=== PATIENT | female | born 1940 | race Caucasian/White ===

== ENCOUNTER 2024-03-19 19:17 | Inpatient (IN) | payer MEDICARE ==
[~2024-03-19] VITALS: Ht 154.9 cm; Wt 54.8 kg
[2024-03-19 21:12] LABS: BASOPHILS ABSOLUTE AUTO 0.03 K/mm3 (0.00-0.23); BASOPHILS PERCENT AUTO 0 % (0-2); EOSINOPHILS ABSOLUTE AUTO 0.01 K/mm3 (0.00-0.68); EOSINOPHILS PERCENT AUTO 0 % (0-6); Hematocrit 42.2 % (33.0-51.0); Hemoglobin 13.7 g/dL (11.5-16.0); IMMATURE GRAN ABSOLUTE AUTO 0.03 K/mm3 (0.00-0.10); IMMATURE GRAN PERCENT AUTO 0 % (0-1); LYMPHOCYTES ABSOLUTE AUTO 0.57 K/mm3 (0.84-5.20); LYMPHOCYTES PERCENT AUTO 5 % (21-46); MONOCYTES ABSOLUTE AUTO 0.51 K/mm3 (0.16-1.47); MONOCYTES PERCENT AUTO 5 % (4-13); Mean Corpuscular HGB 29.8 pg (26.0-34.0); Mean Corpuscular HGB Conc 32.5 g/dL (31.5-36.5); Mean Corpuscular Volume 92 fL (80-100); Mean Platelet Volume 9.7 fL (9.1-12.4); NEUTROPHILS ABSOLUTE AUTO 9.34 K/mm3 (1.96-9.15); NEUTROPHILS PERCENT AUTO 89 % (41-73); Platelet Count 342 K/mm3 (150-400); RDW Coefficient Variation 14.1 % (11.7-14.2); RDW Standard Deviation 47.6 fL (35.1-46.3); Red Blood Cell Count 4.59 M/mm3 (3.80-5.20); White Blood Cell Count 10.49 K/mm3 (4.00-11.30)
[2024-03-19 21:34] LABS: Albumin, Blood 3.4 g/dL (3.4-5.0); Bilirubin, Total 0.6 mg/dL (0.1-1.0); Bun/Creatinine Ratio 19.2 (12.0-20.0); Calcium, Blood 9.4 mg/dL (8.5-10.1); Creatinine, Blood 0.73 mg/dL (0.40-1.00); Globulin, Blood 3.3 g/dL (2.2-4.0); Potassium, Blood 3.7 mmol/L (3.5-5.5); Total Protein, Blood 6.7 g/dL (6.4-8.2)
[2024-03-19 21:48] LABS: Source, Urine Clean Catch
[2024-03-19 21:52] LABS: Appearance, Urine Clear (Clear); Bilirubin, Urine Neg (Neg); Blood, Urine Neg (Neg); Color, Urine Yellow (P-Yellow); Glucose Qualitative, Urine Neg (Neg); Ketones, Urine Neg (Neg); Leukocyte Esterase, Urine Neg (Neg); Nitrite, Urine Neg (Neg); Protein, Urine Neg (Neg); Urobilinogen, Urine NORM (Normal)
[2024-03-19] MEDS ORDERED: Polyethylene Glycol 3350 17 gm PO ONE (22:30)
[2024-03-19] MEDS ORDERED: Sennosides 8.6 MG Tab PO ONE (22:30)
[2024-03-19] MEDS ORDERED: CefTRIAXone Sodium 2,000 MG in NS 100 ML IV ONE (23:10)
[2024-03-19] MEDS ORDERED: MetroNIDAZOLE 500MG/NS 100 ml 100 ML IV ONE (23:10)
[2024-03-19] MEDS ORDERED: Morphine Sulfate 4 MG/1 ML Injection IV PRN (23:45)
[2024-03-19] MEDS ORDERED: Acetaminophen 325 MG TABLET PO PRN (23:45)
[2024-03-19] MEDS ORDERED: Ondansetron HCl 2 MG / ML 2ML Vial IV PRN (23:45)
[2024-03-19] MEDS ORDERED: Magnesium Hydroxide Conc 10 ML UDC PO PRN (23:45)
[2024-03-20] MEDS ORDERED: Naloxone HCl 0.4MG / ML 1ML Vial IV PRN (01:05)
[2024-03-20] MEDS ORDERED: FentaNYL Citrate 50 MCG/ML 2 ML Injection IV PRN (01:10)
[2024-03-20] MEDS ORDERED: Piperacillin/Tazobactam Sod 4.5 GM in NS 100 ML IV ONE (01:15)
[2024-03-20 01:16] VITALS: BP 102/67
[2024-03-20] MEDS ORDERED: METO25ER PO (01:46)
[2024-03-20] MEDS ORDERED: Lactated Ringer's 1,000 ML IV SCH (02:00)
--- NOTE | 2024-03-20 02:00 | NUR ---
ARRIVAL TO SURGICAL FLOOR RM 224 FROM ER. PT ARRIVED WITH SIGNIFICANT OTHER "SANNA" AT BEDSIDE AT 0106. PT TRANSFER TO BED VIA SLIDER SHEET. PT ORIENTED TO ROOM AND CALL LIGHT. PT VERBALIZED BEING TIRED AND WANTING TO SLEEP. PT HAD ELEVATED TEMPERATURE ON ARRIVAL. REMOVED MULTIPLE BLANKETS, TO COOL PT. EDUCATION PROVIDED TO PT AND SANNA. PT VERBALIZED WANTING REST AND DID NOT WISH TO COMPLETE HISTORY AT THIS TIME. VERBALIZED ABDOMINAL PAIN A 2 OR 3/10 ON ARRIVAL AND STATED TOLERABLE.
[2024-03-20 03:01] LABS: BASOPHILS ABSOLUTE AUTO 0.02 K/mm3 (0.00-0.23); BASOPHILS PERCENT AUTO 0 % (0-2); EOSINOPHILS PERCENT AUTO 0 % (0-6); Hematocrit 37.7 % (33.0-51.0); Hemoglobin 12.3 g/dL (11.5-16.0); IMMATURE GRAN ABSOLUTE AUTO 0.08 K/mm3 (0.00-0.10); IMMATURE GRAN PERCENT AUTO 1 % (0-1); LYMPHOCYTES ABSOLUTE AUTO 0.52 K/mm3 (0.84-5.20); LYMPHOCYTES PERCENT AUTO 3 % (21-46); MONOCYTES ABSOLUTE AUTO 0.75 K/mm3 (0.16-1.47); MONOCYTES PERCENT AUTO 5 % (4-13); Mean Corpuscular HGB 29.8 pg (26.0-34.0); Mean Corpuscular HGB Conc 32.6 g/dL (31.5-36.5); Mean Corpuscular Volume 91 fL (80-100); Mean Platelet Volume 9.9 fL (9.1-12.4); NEUTROPHILS ABSOLUTE AUTO 14.56 K/mm3 (1.96-9.15); NEUTROPHILS PERCENT AUTO 91 % (41-73); Platelet Count 288 K/mm3 (150-400); RDW Coefficient Variation 14.2 % (11.7-14.2); RDW Standard Deviation 47.3 fL (35.1-46.3); Red Blood Cell Count 4.13 M/mm3 (3.80-5.20); White Blood Cell Count 15.93 K/mm3 (4.00-11.30)
[2024-03-20 03:25] LABS: Magnesium, Blood 1.7 mg/dL (1.6-2.4)
[2024-03-20 03:26] LABS: Albumin, Blood 2.9 g/dL (3.4-5.0); Albumin/Globulin Ratio 0.9 (0.8-1.8); Bilirubin, Total 0.6 mg/dL (0.1-1.0); Bun/Creatinine Ratio 22.5 (12.0-20.0); Calcium, Blood 8.8 mg/dL (8.5-10.1); Creatinine, Blood 0.62 mg/dL (0.40-1.00); Globulin, Blood 3.2 g/dL (2.2-4.0); Potassium, Blood 3.4 mmol/L (3.5-5.5); Total Protein, Blood 6.1 g/dL (6.4-8.2)
[2024-03-20 04:44] VITALS: BP 113/55
[2024-03-20 07:07] VITALS: BP 118/60
--- NOTE | 2024-03-20 07:50 | NUR ---
SHIFT SUMMARY NOC. PT ADMITTED FOR ACUTE DIVERTIC. PT A/O X4 AND AMBULATES TO BSC WITH SBA. PT VOIDING URINE AND IS NPO STATUS. FLUIDS RUNNING PER EMAR. PT REPORTS COVID DX ON 03/09/24 VERIFIED WITH LIVE IN COMPANION AND TELECOM MANAGER THAT ISO NOT NEEDED SINCE OVER 10 DAYS. BEDALARM SET FOR SAFETY PT WAS TIRED AND WEAK UPON ARRIVAL. PT VERBALIZED ABD PAIN, BUT REPORTED TOLERATBLE. PAIN INCREASED AFTER GETTING TO BSC. PT HAD CRITICAL LACTIC WHICH IS DOWN TRENDING FROM INITIAL ER VALUE. PT RESTED WITH EYES CLOSED AND CALL LIGHT IN REACH.
[2024-03-20] MEDS ORDERED: Piperacillin/Tazobactam Sod 3.375 GM in NS 100 ML IV SCH (08:00)
[2024-03-20] MEDS ORDERED: NS 250 ML IV PRN (08:15)
[2024-03-20] MEDS ORDERED: Enoxaparin 40 MG/0.4 ML SYR SC SCH (09:00)
[2024-03-20] MEDS ORDERED: Polyethylene Glycol 3350 17 gm PO SCH (09:00)
[2024-03-20] MEDS ORDERED: Potassium Chloride 40 MEQ in NS 250 ML IV ONE (11:00)
--- NOTE | 2024-03-20 14:41 | NUR ---
PT PAINFUL W/MOVEMENT DECLINED FENTANYL AND TYLENOL. NOW RESTING BACK IN BED AFTER USING BSC.
[2024-03-20 14:44] VITALS: BP 98/85
--- NOTE | 2024-03-20 16:13 | NUR ---
SUMMARY TURNING OVER CARE TO JAY José RN. NO ACUTE CHANGES T/O SHIFT. PT 1 SBA ASSIST TO BSC. PAINFUL W/MOVEMENT; REFUSED PAIN MEDS. IV ABX INFUSING NOW, AFTER COMPLETION OF IV POTASSIUM PER ORDERS. VISITING WITH GUEST. CALL LIGHT IN REACH.
--- NOTE | 2024-03-20 18:31 | NUR ---
SINCE ASSUMING CARE: HAS RESTED & DECLINED NEEDS. IS CURRENTLY TAKING ONLY SIPS OF CLEAR LQs & DENIES NAUSEA.
[2024-03-20 19:29] VITALS: BP 110/55
[2024-03-21] MEDS ORDERED: Lactated Ringer's 1,000 ML IV SCH (02:00)
[2024-03-21 02:25] VITALS: BP 130/58
[2024-03-21 04:07] LABS: BASOPHILS ABSOLUTE AUTO 0.02 K/mm3 (0.00-0.23); BASOPHILS PERCENT AUTO 0 % (0-2); EOSINOPHILS PERCENT AUTO 0 % (0-6); Hematocrit 34.3 % (33.0-51.0); Hemoglobin 11.4 g/dL (11.5-16.0); IMMATURE GRAN ABSOLUTE AUTO 0.12 K/mm3 (0.00-0.10); IMMATURE GRAN PERCENT AUTO 1 % (0-1); LYMPHOCYTES ABSOLUTE AUTO 0.56 K/mm3 (0.84-5.20); LYMPHOCYTES PERCENT AUTO 3 % (21-46); MONOCYTES ABSOLUTE AUTO 0.43 K/mm3 (0.16-1.47); MONOCYTES PERCENT AUTO 3 % (4-13); Mean Corpuscular HGB 30.2 pg (26.0-34.0); Mean Corpuscular HGB Conc 33.2 g/dL (31.5-36.5); Mean Corpuscular Volume 91 fL (80-100); Mean Platelet Volume 10.3 fL (9.1-12.4); NEUTROPHILS ABSOLUTE AUTO 15.59 K/mm3 (1.96-9.15); NEUTROPHILS PERCENT AUTO 93 % (41-73); Platelet Count 245 K/mm3 (150-400); RDW Coefficient Variation 14.6 % (11.7-14.2); RDW Standard Deviation 47.7 fL (35.1-46.3); Red Blood Cell Count 3.78 M/mm3 (3.80-5.20); White Blood Cell Count 16.72 K/mm3 (4.00-11.30)
[2024-03-21 04:21] LABS: Calcium, Blood 8.8 mg/dL (8.5-10.1); Creatinine, Blood 0.7 mg/dL (0.40-1.00); Potassium, Blood 3.7 mmol/L (3.5-5.5)
[2024-03-21 05:49] VITALS: BP 142/68
--- NOTE | 2024-03-21 06:13 | NUR ---
SHIFT SUMMARY AOx4. LAC VIEUX. VSS. FREQUENT GAGGING W/PRODUCTIVE COUGH, SPITS UP THICK PRESTON MUCUS. DENIES N/V. ALAINA CLEARS, VERY MIN PO INTAKE-INFORMED DR ANDRADE & HE ORDERED CONTINUOUS LR. NO BM THIS SHIFT. ABD MOD DISTENDED, TENDER W/PALPATION, ACTIVE BT. REPORTS PAIN 03/13 MEDICATED W/25MCG FENTANYL & PT ABLE TO REST. UP 1 ASSIST TO BSC, REPORTS FEELING WEAK THIS AM & IS SHAKY WHILE STANDING. HAS VOIDED MULTIPLE TIMES, URINE ORANGE W/STRONG ODOR. CALL LIGHT IN REACH, WILL MONITOR.
[2024-03-21 07:23] VITALS: BP 133/70
[2024-03-21] MEDS ORDERED: Magnesium Oxide 400 MG Tab PO SCH (09:00)
[2024-03-21 14:00] VITALS: BP 120/62
--- NOTE | 2024-03-21 18:09 | NUR ---
SHIFT SUMMARY PT WAS DROWSY UNTIL EARLY AFTERNOON, WHICH SPOUSE REPORTS IS NORMAL FOR HER. ABD WAS DISTENED SIGNIFICANTLY BUT SOFTENED AFTER BM. GETS SHAKY w/ ACTIVITY TO BSC AT X's. DECLINED ZOFRAN & PAIN MEDS T/O SHIFT.
[2024-03-21 19:09] VITALS: BP 146/79
[2024-03-22 03:15] VITALS: BP 160/77
--- NOTE | 2024-03-22 04:17 | NUR ---
SHIFT SUMMARY PT ABLE TO SLEEP DURING THE NIGHT. PT WAS A SBA TO THE BSC. PT PASSING GAS AND HAVING SM BOWEL MOVEMENTS. PT TOLERATING CLEAR LIQUIDS, VOIDING WELL. PT HAD BEEN DESATTING WHILE SLEEPING DOWN INTO THE MID 80'S. PT WAS THEN PUT ON 2L NC FOR SUPPORT. PT NOW SATTING ABOVE 92% WHILE SLEEPING. NO OTHER CONCERNS AT THIS TIME, CALL LIGHT WITHIN REACH
[2024-03-22 07:11] VITALS: BP 174/76
[2024-03-22 09:08] LABS: BASOPHILS ABSOLUTE AUTO 0.02 K/mm3 (0.00-0.23); BASOPHILS PERCENT AUTO 0 % (0-2); EOSINOPHILS ABSOLUTE AUTO 0.02 K/mm3 (0.00-0.68); EOSINOPHILS PERCENT AUTO 0 % (0-6); Hematocrit 34.8 % (33.0-51.0); Hemoglobin 11.4 g/dL (11.5-16.0); IMMATURE GRAN ABSOLUTE AUTO 0.12 K/mm3 (0.00-0.10); IMMATURE GRAN PERCENT AUTO 1 % (0-1); LYMPHOCYTES ABSOLUTE AUTO 0.32 K/mm3 (0.84-5.20); LYMPHOCYTES PERCENT AUTO 2 % (21-46); MONOCYTES ABSOLUTE AUTO 0.43 K/mm3 (0.16-1.47); MONOCYTES PERCENT AUTO 3 % (4-13); Mean Corpuscular HGB 29.5 pg (26.0-34.0); Mean Corpuscular HGB Conc 32.8 g/dL (31.5-36.5); Mean Corpuscular Volume 90 fL (80-100); Mean Platelet Volume 10.4 fL (9.1-12.4); NEUTROPHILS PERCENT AUTO 94 % (41-73); Platelet Count 275 K/mm3 (150-400); RDW Coefficient Variation 14.5 % (11.7-14.2); RDW Standard Deviation 47.7 fL (35.1-46.3); Red Blood Cell Count 3.86 M/mm3 (3.80-5.20); White Blood Cell Count 15.41 K/mm3 (4.00-11.30)
[2024-03-22 09:28] LABS: Bun/Creatinine Ratio 20.3 (12.0-20.0); Calcium, Blood 8.8 mg/dL (8.5-10.1); Creatinine, Blood 0.59 mg/dL (0.40-1.00); Potassium, Blood 3.6 mmol/L (3.5-5.5)
[2024-03-22 09:31] LABS: BASOPHILS PERCENT MAN 0 % (0-2); EOSINOPHILS PERCENT MAN 0 % (0-6); LYMPHOCYTES PERCENT MAN 2 % (21-46); MONOCYTES ABSOLUTE MAN 0.46 K/mm3 (0.16-1.47); MONOCYTES PERCENT MAN 3 % (4-13); NEUTROPHILS ABSOLUTE MAN 14.63 K/mm3 (1.96-9.15); SEG NEUTROPHILS PERCENT MAN 95 % (41-73); TOTAL CELLS COUNTED 100
[2024-03-22] MEDS ORDERED: Metoprolol Succinate 25 MG TABCR PO SCH (12:00)
[2024-03-22 13:25] VITALS: BP 132/92
[2024-03-22 14:43] VITALS: BP 132/60
[2024-03-22 19:19] VITALS: BP 156/91
--- NOTE | 2024-03-22 19:44 | NUR ---
SHIFT SUMMARY PT HAD A BETTER DAY THAN YESTERDAY, OBSERVED BY THIS RN & PT REPORTING. WAS ALERT & INTERACTIVE TODAY. UP TO BSC & AMBULATED. PAIN BETTER & MORE INTERESTED IN TAKING IN PO FLUIDS. ABD CONT's TO BE DISTENDED.
--- NOTE | 2024-03-23 04:45 | NUR ---
SHIFT SUMMARY PT ABLE TO SLEEP DURING THE NIGHT. PAIN MANAGED PER EMAR. PT TOLERATING CLEAR LIQUID DIET. PT GIVEN A K-PAD AND IT SEEMS TO HELP. PT HAVING LIQUID BOWEL MOVEMENTS. VOIDING WELL. PT WEARING 2L NC FOR SUPPORT WHILE SLEEPING. VSS. NO OTHER CONCERNS AT THIS TIME, CALL LIGHT WITHIN REACH.
[2024-03-23 05:17] VITALS: BP 155/78
[2024-03-23 05:26] LABS: BASOPHILS ABSOLUTE AUTO 0.03 K/mm3 (0.00-0.23); BASOPHILS PERCENT AUTO 0 % (0-2); EOSINOPHILS ABSOLUTE AUTO 0.08 K/mm3 (0.00-0.68); EOSINOPHILS PERCENT AUTO 1 % (0-6); Hematocrit 33.9 % (33.0-51.0); Hemoglobin 11.2 g/dL (11.5-16.0); IMMATURE GRAN ABSOLUTE AUTO 0.08 K/mm3 (0.00-0.10); IMMATURE GRAN PERCENT AUTO 1 % (0-1); LYMPHOCYTES ABSOLUTE AUTO 0.42 K/mm3 (0.84-5.20); LYMPHOCYTES PERCENT AUTO 4 % (21-46); MONOCYTES ABSOLUTE AUTO 0.66 K/mm3 (0.16-1.47); MONOCYTES PERCENT AUTO 6 % (4-13); Mean Corpuscular HGB 29.9 pg (26.0-34.0); Mean Corpuscular Volume 91 fL (80-100); Mean Platelet Volume 10.2 fL (9.1-12.4); NEUTROPHILS PERCENT AUTO 89 % (41-73); Platelet Count 251 K/mm3 (150-400); RDW Coefficient Variation 14.4 % (11.7-14.2); RDW Standard Deviation 47.8 fL (35.1-46.3); Red Blood Cell Count 3.74 M/mm3 (3.80-5.20); White Blood Cell Count 11.77 K/mm3 (4.00-11.30)
[2024-03-23 05:49] LABS: Bun/Creatinine Ratio 19.8 (12.0-20.0); Calcium, Blood 8.7 mg/dL (8.5-10.1); Creatinine, Blood 0.5 mg/dL (0.40-1.00); Potassium, Blood 3.3 mmol/L (3.5-5.5)
[2024-03-23 07:17] VITALS: BP 166/75
--- NOTE | 2024-03-23 07:28 | NUR ---
IMAGING: PT TO CT AT THIS TIME FOR REPEAT IMAGING. PT 1 ASSIST TO WHEELCHAIR. LINENS CHANGED. WILL MONITOR WHEN RETURNS TO ROOM.
--- NOTE | 2024-03-23 11:20 | NUR ---
IMAGING RESULTS: DR EASTMAN IN ROOM TO ASSESS PATIENT. PATIENT MADE NPO AT THIS TIME CT RESULTS HAVE SHOWED NEW ABSCESS FORMATION. AWAITING SURGEON ROUNDING. FAMILY EDUCATED.
[2024-03-23] MEDS ORDERED: Potassium Chloride 20 MEQ TabCR PO ONE (12:00)
[2024-03-23 14:40] VITALS: BP 127/63
--- NOTE | 2024-03-23 18:54 | NUR ---
PT STABLE THIS SHIFT. PT HAD REPEAT CT OF ABDOMEN WHICH SHOWS NEW ABSCESS. NPO AFTER MIDNIGHT FOR POSSIBLE DRAIN PLACEMENT TOMORROW. PT ALAINA CLEARS AT THIS TIME. PT HAVING FREQUEENT, UNCONTROLLABLE LIQUID STOOLS. STOOL SOFTENERS HELD TODAY. PULL UPS ON. PT I ASSIST TO COMMODE, CHAIR AND TO AMBULATE HALLWAY.IV INFUSING PER ORDERS. NO PAIN REPORTED THIS SHIFT. NO NAUSEA. SHOWER THIS AFTERNOON. LABS TO BE REPEATED IN AM.
[2024-03-23 19:19] VITALS: BP 148/74
--- NOTE | 2024-03-24 04:08 | NUR ---
SHIFT SUMMARY PT ABLE TO SLEEP T/O NIGHT. DENIES ANY PAIN DURING THE SHIFT. SBA TO THE BSC. PT VOIDING AND HAVIGN LIQUID BM'S. PT HAS BEEN NPO TONIGHT FOE POSSIBLE PROCEDURE TODAY. VSS. NO TOEHR CONCERNS AT THIS TIME, CALL LIGHT BAILEY REACH
[2024-03-24 04:20] VITALS: BP 161/69
[2024-03-24 05:03] LABS: BASOPHILS ABSOLUTE AUTO 0.04 K/mm3 (0.00-0.23); BASOPHILS PERCENT AUTO 0 % (0-2); EOSINOPHILS ABSOLUTE AUTO 0.18 K/mm3 (0.00-0.68); EOSINOPHILS PERCENT AUTO 2 % (0-6); Hematocrit 33.2 % (33.0-51.0); Hemoglobin 10.9 g/dL (11.5-16.0); IMMATURE GRAN ABSOLUTE AUTO 0.04 K/mm3 (0.00-0.10); IMMATURE GRAN PERCENT AUTO 0 % (0-1); LYMPHOCYTES ABSOLUTE AUTO 0.59 K/mm3 (0.84-5.20); LYMPHOCYTES PERCENT AUTO 5 % (21-46); MONOCYTES ABSOLUTE AUTO 0.86 K/mm3 (0.16-1.47); MONOCYTES PERCENT AUTO 8 % (4-13); Mean Corpuscular HGB 29.9 pg (26.0-34.0); Mean Corpuscular HGB Conc 32.8 g/dL (31.5-36.5); Mean Corpuscular Volume 91 fL (80-100); Mean Platelet Volume 9.9 fL (9.1-12.4); NEUTROPHILS ABSOLUTE AUTO 9.77 K/mm3 (1.96-9.15); NEUTROPHILS PERCENT AUTO 85 % (41-73); Platelet Count 262 K/mm3 (150-400); RDW Coefficient Variation 14.4 % (11.7-14.2); Red Blood Cell Count 3.64 M/mm3 (3.80-5.20); White Blood Cell Count 11.48 K/mm3 (4.00-11.30)
[2024-03-24 05:29] LABS: Bun/Creatinine Ratio 15.6 (12.0-20.0); Calcium, Blood 8.7 mg/dL (8.5-10.1); Creatinine, Blood 0.51 mg/dL (0.40-1.00); Potassium, Blood 3.1 mmol/L (3.5-5.5)
[2024-03-24 07:19] VITALS: BP 151/78
[2024-03-24 12:02] VITALS: BP 156/73
[2024-03-24] MEDS ORDERED: Potassium Chloride 40 MEQ in NS 250 ML IV STA (12:21)
[2024-03-24] MEDS ORDERED: Piperacillin/Tazobactam Sod 3.375 GM ONE (12:47)
[2024-03-24] MEDS ORDERED: Nystatin 100,000 Unit/ML Susp 5 ML UDC PO SCH (13:00)
[2024-03-24 13:51] LABS: Phosphorus, Blood 2.1 mg/dL (2.5-4.9)
[2024-03-24] MEDS ORDERED: Acyclovir 400 MG Tab PO SCH (14:00)
[2024-03-24] MEDS ORDERED: Thiamine HCl 100 MG in Aa 4.25%/Calcium/Lytes/D5w 1,000 ML IV SCH (14:15)
[2024-03-24] MEDS ORDERED: [UNRECOGNIZED DRUG - OTHER] IV SCH (14:15)
[2024-03-24] MEDS ORDERED: LYTES IV SCH (14:15)
[2024-03-24] MEDS ORDERED: CALCIUM IV SCH (14:15)
[2024-03-24] MEDS ORDERED: MULTIVITAMINS IV SCH (14:15)
[2024-03-24] MEDS ORDERED: D5W IV SCH (14:15)
[2024-03-24] MEDS ORDERED: TPN Consult Notification XX ONE (14:25)
[2024-03-24 14:52] VITALS: BP 132/64
[2024-03-24] MEDS ORDERED: Sodium Phosphate Mono/Dibasic 250 MG Tab PO SCH (16:30)
[2024-03-24 19:39] VITALS: BP 138/68
[2024-03-24] MEDS ORDERED: Lactobacil 2-S.Thermo-Bifido 1 1 Cap PO SCH (21:00)
--- NOTE | 2024-03-25 04:03 | NUR ---
SHIFT SUMMARY PT IS A/O X4, SBA TO [facility]. HAS HAD SEVERAL BMS THIS SHIFT, LIQUID BROWN. PT DENIES PAIN AND NAUSEA, DENIES ABD TENDERNESS TO PALPATION. MOD ABD DISTENTION. IV FLUIDS RUNNING ORDERED. PT REFUSED SCDS DURING SHIFT. IV ABX GIVEN ORDERED. PT USING CALL LIGHT APPROPRIATELY. PLAN FOR REPEAT CT ON WED.
[2024-03-25 04:20] VITALS: BP 161/79
[2024-03-25 06:34] LABS: Alanine Aminotransfer (ALT/SGP 21 U/L (12-78); Albumin/Globulin Ratio 0.6 (0.8-1.8); Alk Phos 120 U/L (50-136); Anion Gap 8 mmol/L (3-11); Aspartate Aminotrans (AST/SGOT 28 U/L (12-37); Bilirubin, Total 0.7 mg/dL (0.1-1.0); Blood Urea Nitrogen 7 mg/dL (8-24); Bun/Creatinine Ratio 15.6 (12.0-20.0); CO2, Blood 27 mmol/L (21-32); Calcium, Blood 8.7 mg/dL (8.5-10.1); Chloride, Blood 110 mmol/L (98-108); Creatinine, Blood 0.45 mg/dL (0.40-1.00); Globulin, Blood 3.3 g/dL (2.2-4.0); Glomerular Filtration Rate 95 (60-); Glucose, Blood 113 mg/dL (70-99); Magnesium, Blood 1.9 mg/dL (1.6-2.4); Phosphorus, Blood 2.4 mg/dL (2.5-4.9); Potassium, Blood 3.3 mmol/L (3.5-5.5); Sodium, Blood 142 mmol/L (136-145); Total Protein, Blood 5.3 g/dL (6.4-8.2); Triglycerides 100 mg/dL (30-160)
[2024-03-25 07:23] VITALS: BP 135/73
[2024-03-25] MEDS ORDERED: Fat Emulsion 20 % IV 250 ML IV SCH (09:00)
[2024-03-25] MEDS ORDERED: Potassium Phos/Sodium Phos 250 MG PACK PO SCH (09:00)
[2024-03-25] MEDS ORDERED: Acyclovir Ointment 15 gm TOP SCH (10:00)
[2024-03-25] MEDS ORDERED: Banana Flakes/Tos 1 EA Powder Pack PO SCH (14:00)
[2024-03-25 15:42] VITALS: BP 135/65
--- NOTE | 2024-03-25 16:18 | NUR ---
SHIFT SUMMARY PT A&OX4/FALSE PASS-AIDS, VSS/RA, ALAINA PO FLD, VOIDING/LIQUID BMS - BSC, AMB SBA FWW IN ROOM AND IN HALLWAY, UP TO CHAIR, DENIES PAIN, IVF/ABX AND MVI/INTRALIPID PER EMAR. WILL REPORT TO ONCOMING ELIAN WISE.
[2024-03-25 19:38] VITALS: BP 153/81
[2024-03-26] MEDS ORDERED: FLUCONAZOLE 100 MG/2.5 ML PO ONE (00:05)
--- NOTE | 2024-03-26 00:05 | NUR ---
PT C/O BURNING TO LABIA AREAS WHEN VOIDING.AREA CHECKED PER THIS RN AND PTS RN.AREAS APPEARS INFLAMMED WITH POSSIBLE YEAST.SONIDO RINSE BOTTLE USED FOR COMFORT.I CALLED HOSPITALIST AND ADVISED OF PT C/O AND APPEARANCE.DIFLUCAN ORDERED X1.
[2024-03-26 03:09] VITALS: BP 153/86
--- NOTE | 2024-03-26 04:23 | NUR ---
SHIFT SUMMARY PT IS A/O X4 AND A SBA TO BSC. HAVING LIQUID BMS AND PASSING GAS. PT MEDICATED FOR PAIN ONCE THIS SHIFT W/ TOLERABLE RESULTS. VAG BURNING RESOLVING, MEDICATED W/ DIFLUCAN PER MD ORDERS. M.V.I. RUNNING AT ORDERED RATE, IV ABX GIVEN PER EMAR. PT TOLERATING FULL LIQUID DIET. VSS. PT USING CALL LIGHT APPROPRIATELY.
[2024-03-26 05:20] LABS: BASOPHILS ABSOLUTE AUTO 0.04 K/mm3 (0.00-0.23); BASOPHILS PERCENT AUTO 0 % (0-2); EOSINOPHILS ABSOLUTE AUTO 0.13 K/mm3 (0.00-0.68); EOSINOPHILS PERCENT AUTO 1 % (0-6); Hematocrit 33.1 % (33.0-51.0); IMMATURE GRAN ABSOLUTE AUTO 0.05 K/mm3 (0.00-0.10); IMMATURE GRAN PERCENT AUTO 1 % (0-1); LYMPHOCYTES ABSOLUTE AUTO 0.67 K/mm3 (0.84-5.20); LYMPHOCYTES PERCENT AUTO 7 % (21-46); MONOCYTES ABSOLUTE AUTO 0.91 K/mm3 (0.16-1.47); MONOCYTES PERCENT AUTO 9 % (4-13); Mean Corpuscular HGB Conc 33.2 g/dL (31.5-36.5); Mean Corpuscular Volume 90 fL (80-100); Mean Platelet Volume 10.4 fL (9.1-12.4); NEUTROPHILS ABSOLUTE AUTO 8.47 K/mm3 (1.96-9.15); NEUTROPHILS PERCENT AUTO 82 % (41-73); Platelet Count 272 K/mm3 (150-400); RDW Coefficient Variation 14.2 % (11.7-14.2); RDW Standard Deviation 46.5 fL (35.1-46.3); Red Blood Cell Count 3.67 M/mm3 (3.80-5.20); White Blood Cell Count 10.27 K/mm3 (4.00-11.30)
[2024-03-26 05:51] LABS: Albumin, Blood 2.1 g/dL (3.4-5.0); Albumin/Globulin Ratio 0.6 (0.8-1.8); Bilirubin, Total 0.5 mg/dL (0.1-1.0); Bun/Creatinine Ratio 20.5 (12.0-20.0); Calcium, Blood 8.8 mg/dL (8.5-10.1); Creatinine, Blood 0.44 mg/dL (0.40-1.00); Globulin, Blood 3.5 g/dL (2.2-4.0); Magnesium, Blood 2.2 mg/dL (1.6-2.4); Phosphorus, Blood 2.8 mg/dL (2.5-4.9); Total Protein, Blood 5.6 g/dL (6.4-8.2)
[2024-03-26 08:24] VITALS: BP 175/74
[2024-03-26] MEDS ORDERED: Potassium Chloride 20 MEQ TabCR PO SCH ×2 (11:13→17:00)
[2024-03-26 11:29] VITALS: BP 150/76
[2024-03-26] MEDS ORDERED: Metoprolol Succinate 25 MG TABCR PO ONE (11:35)
[2024-03-26 15:08] VITALS: BP 136/69
--- NOTE | 2024-03-26 17:09 | NUR ---
SHIFT SUMMARY PT A&OX4/OMAHA-AIDS, VSS/RA, ALAINA PO SOFT BITE SIZED, VOIDING/LIQUID BMS - BSC, AMB SBA IN ROOM AND IN HALLWAY, UP TO CHAIR, DENIES PAIN, IVF/ABX AND MVI/INTRALIPID PER EMAR. WILL REPORT TO ONCOMING ELIAN WISE.
[2024-03-26 19:33] VITALS: BP 158/71
[2024-03-27 03:19] VITALS: BP 161/81
[2024-03-27 03:24] VITALS: BP 140/63
[2024-03-27 04:49] LABS: Bun/Creatinine Ratio 19.2 (12.0-20.0); Calcium, Blood 8.8 mg/dL (8.5-10.1); Creatinine, Blood 0.52 mg/dL (0.40-1.00); Magnesium, Blood 2.2 mg/dL (1.6-2.4); Phosphorus, Blood 2.9 mg/dL (2.5-4.9); Potassium, Blood 3.8 mmol/L (3.5-5.5)
--- NOTE | 2024-03-27 05:16 | NUR ---
SHIFT SUMMARY PT IS A/O X4, TRANSFERING INDEPENDENTLY TO BSC. NO BMS SO FAR THIS SHIFT. VOIDING APPROPRIATELY. PT DENIES BURNING W/ URINATION. NO COMPLAINTS OF PAIN THIS SHIFT. PT REPORTS "FEELING BETTER". VSS. CT SCHEDULED THIS AM. IV NUTRITION AND ABX GIVEN PER EMAR. PT CALLING APPROPRIATELY.
[2024-03-27 07:30] VITALS: BP 152/99
[2024-03-27] MEDS ORDERED: [UNRECOGNIZED DRUG - OTHER] IV SCH (08:25)
[2024-03-27] MEDS ORDERED: Aa 4.25%/Calcium/Lytes/D5w 1,000 ML IV SCH (08:25)
[2024-03-27] MEDS ORDERED: CALCIUM IV SCH (08:25)
[2024-03-27] MEDS ORDERED: LYTES IV SCH (08:25)
[2024-03-27] MEDS ORDERED: D5W IV SCH (08:25)
[2024-03-27] MEDS ORDERED: Metoprolol Succinate 25 MG TABCR PO SCH (09:00)
[2024-03-27 14:19] VITALS: BP 155/66
[2024-03-27 19:59] VITALS: BP 163/74
[2024-03-28 04:21] VITALS: BP 168/83
[2024-03-28 05:44] LABS: Bun/Creatinine Ratio 23.2 (12.0-20.0); Calcium, Blood 8.7 mg/dL (8.5-10.1); Creatinine, Blood 0.47 mg/dL (0.40-1.00); Potassium, Blood 3.9 mmol/L (3.5-5.5)
--- NOTE | 2024-03-28 06:02 | NUR ---
SHIFT SUMMARY PT IS A/O X4, IND TO BSC. PT REPORTS DECREASE IN ABD DISCOMFORT, ABDOMEN STILL MODERATELY DISTENTED. PT HAVING SOFT FORMED BOWEL MOVEMENTS. MEDICATED FOR FOR ORAL THRUSH/SORES PER EMAR. IV ABX AND CLINIMIX GIVEN PER EMAR. PT STABLE. CALL LIGHT IN REACH.
[2024-03-28 07:16] VITALS: BP 184/79
[2024-03-28 14:36] VITALS: BP 174/70
[2024-03-28 14:37] VITALS: BP 163/76
--- NOTE | 2024-03-28 16:25 | NUR ---
SHIFT SUMMARY PT AA0X4. AMBULATING WELL DURING SHIFT. ENCOURAGED HER TO KEEP AMBULATING IN ROOM AND DEEP BREATHING. PT SHOWERED TODAY. REPORTS PAIN MUCH IMPROVED, PASSING FLATUS. CLINIMIX INFUSING PER EMAR. PAIN TO LEFT FOREARM IMPROVING IV INFILTRATED THIS MORNING. SPOKE WITH DR. RENTERIA, PLAN IS TO MAKE PT NPO AT MIDNIGHT. AT BEDSIDE T/O SHIFT.
[2024-03-28 19:12] VITALS: BP 138/68
--- NOTE | 2024-03-28 21:00 | NUR ---
ASSUMPTION OF CARE Pt sitting in recliner in room, spouse at bedside. Pt oriented x4, up independently in room. Tolerating PO intake, declines pain medications. Pt verbalizes understanding of plan for NPO at midnight.
[2024-03-29] VITALS (19 sets, daily range): BP systolic 112–172; BP diastolic 54–88
[2024-03-29 06:14] LABS: BASOPHILS ABSOLUTE AUTO 0.04 K/mm3 (0.00-0.23); BASOPHILS PERCENT AUTO 0 % (0-2); EOSINOPHILS ABSOLUTE AUTO 0.09 K/mm3 (0.00-0.68); EOSINOPHILS PERCENT AUTO 1 % (0-6); Hematocrit 35.3 % (33.0-51.0); Hemoglobin 11.6 g/dL (11.5-16.0); IMMATURE GRAN PERCENT AUTO 1 % (0-1); LYMPHOCYTES ABSOLUTE AUTO 0.82 K/mm3 (0.84-5.20); LYMPHOCYTES PERCENT AUTO 6 % (21-46); MONOCYTES ABSOLUTE AUTO 1.08 K/mm3 (0.16-1.47); MONOCYTES PERCENT AUTO 8 % (4-13); Mean Corpuscular HGB 29.5 pg (26.0-34.0); Mean Corpuscular HGB Conc 32.9 g/dL (31.5-36.5); Mean Corpuscular Volume 90 fL (80-100); Mean Platelet Volume 9.9 fL (9.1-12.4); NEUTROPHILS PERCENT AUTO 84 % (41-73); Platelet Count 349 K/mm3 (150-400); RDW Coefficient Variation 14.4 % (11.7-14.2); Red Blood Cell Count 3.93 M/mm3 (3.80-5.20); White Blood Cell Count 13.63 K/mm3 (4.00-11.30)
--- NOTE | 2024-03-29 06:27 | NUR ---
SHIFT SUMMARY No acute events overnight, pt slept throughout shift, vitals remain stable and pt able to reposition self and ambulate in room. Clinimix infusing per PIV. Pt denies issues, has remained NPO since midnight.
[2024-03-29 06:39] LABS: Albumin, Blood 2.4 g/dL (3.4-5.0); Anion Gap 8 mmol/L (3-11); Blood Urea Nitrogen 12 mg/dL (8-24); Bun/Creatinine Ratio 19.8 (12.0-20.0); CO2, Blood 26 mmol/L (21-32); Calcium, Blood 8.7 mg/dL (8.5-10.1); Chloride, Blood 106 mmol/L (98-108); Creatinine, Blood 0.61 mg/dL (0.40-1.00); Glomerular Filtration Rate 89 (60-); Glucose, Blood 106 mg/dL (70-99); Magnesium, Blood 2.4 mg/dL (1.6-2.4); Potassium, Blood 3.9 mmol/L (3.5-5.5); Sodium, Blood 136 mmol/L (136-145)
[2024-03-29] MEDS ORDERED: Cholecalciferol 1000 Unit Tablet (=25MCG) PO SCH (09:00)
--- NOTE | 2024-03-29 11:50 | NUR ---
PT OUT FOR PROCEDURE- PT LEFT THE ROOM IN THE BED FOR DAY SURGERY. 1200 PIP/TAZO PROVIDED TO THE DAY SURG RNS FOR PT TO RECIEVE IN DAY SURGERY. DR RENTERIA AWARE AND REQUESTED DOSE SENT WITH PT.
[2024-03-29] MEDS ORDERED: propofoL 0 ML IV ONE (12:03)
--- NOTE | 2024-03-29 12:03 | NUR ---
PT TO DAY SURGERY WITH 20G IV TO RIGHT FA.
[2024-03-29] MEDS ORDERED: Rocuronium Bromide 10 MG/ML 5ML Injection IV ONE ×3 (12:04→16:46)
[2024-03-29] MEDS ORDERED: FentaNYL Citrate 50 MCG/ML 2 ML Injection ONE (12:04)
[2024-03-29] MEDS ORDERED: propofoL 20 ML IV ONE (14:37)
[2024-03-29] MEDS ORDERED: FentaNYL Citrate 50 MCG/ML 5 ML Injection ONE (14:37)
[2024-03-29] MEDS ORDERED: Bupivacaine 0.5% HCl 5 MG/ML 30MLVIAL ONE ×2 (15:32→15:39)
[2024-03-29] MEDS ORDERED: SuccINYLCHOLINE Chloride 100 MG/5 ML 5MLSYR ONE (16:12)
[2024-03-29] MEDS ORDERED: Phenylephrine HCl 100 MCG/ML-NS 10MLSYR (1MG/10ML) ONE (16:15)
[2024-03-29] MEDS ORDERED: Glycopyrrolate 0.2 MG/ML 5ML VIAL ONE (16:21)
[2024-03-29] MEDS ORDERED: FentaNYL Citrate 50 MCG/ML 2 ML Injection IV PRN ×2 (16:25→16:30)
[2024-03-29] MEDS ORDERED: Dexamethasone Sod Phos 10 MG/ML 1ML VIAL ONE (16:27)
[2024-03-29] MEDS ORDERED: Ondansetron HCl 2 MG / ML 2ML Vial ONE (16:27)
[2024-03-29] MEDS ORDERED: Ondansetron HCl 2 MG / ML 2ML Vial IV PRN (16:30)
[2024-03-29] MEDS ORDERED: HYDROmorphone HCl/Pf 1MG SYR IV PRN (16:30)
[2024-03-29] MEDS ORDERED: Sugammadex Sodium 200 MG/2ML SDV (100 MG/ML) ONE (17:04)
--- NOTE | 2024-03-29 18:03 | NUR ---
SHIFT SUMMARY- PT ALERT AND ORIENTED x3 INDEPENDENT IN THE ROOM PRIOR TO SURGERY. POST OP THE PT HAS 3 EXOFEN SITES. KAYLI DRAIN TO THE LUQ. SHE HAD A DICKINSON TAT WAS DC'D POST OP. PLACED ON 2L VIA NC IN RECOVERY. PT RETURNING TO THE ROOM NOW AT 1810.
--- NOTE | 2024-03-29 18:27 | NUR ---
POST OP PT- APPEARS TO BE RESTING COMFORTABLY AT THIS TIME. PT WAS PLACED ON RA WHEN SHE ARRIVED HOWEVER HER SATS DIPPED TO 88% AND SHE WAS PLACED BACK ON 2L VIA NC. PT STILL APPEARS TO BE SOUND ASLEEP.
[2024-03-30 00:05] VITALS: BP 132/62
[2024-03-30 02:18] VITALS: BP 125/67
--- NOTE | 2024-03-30 05:00 | NUR ---
SHIFT SUMMARY POD 1 LAP DRAINAGE OF PELVIC ABSCESS. NO ACUTE CHANGES OVERNIGHT. VSS. TOLERATING MIN ORALS, CLINIMIX/LIPIDS INFUSING PER EMAR. PT ON 2L O2 VIA NC PRN TO MAINTAIN SAT >90%. FLUIDS/ABX INFUSING PER EMAR. PT REPORTS PAIN TOLERABLE c K-PAD. VOIDING, NO BM. AMBULATES c 1 PERSON ASSIST TO BSC. CALL LIGHT IN REACH, BED IN LOWEST POSITION, WILL REPORT TO DAY RN.
[2024-03-30 07:45] VITALS: BP 118/59
[2024-03-30 15:20] VITALS: BP 146/65
--- NOTE | 2024-03-30 16:53 | NUR ---
SHIFT SUMMARY NO ACUTE CHANGES. LAP SITES TO ABD REMAIN CDI. KAYLI DRAIN TO LUQ WITH SS DRAINAGE. KPAD TO ABD FOR COMFORT. TYLENOL FOR PAIN MANAGEMENT. SLOWLY ALAINA SOFT DIET. CLINIMIX + LIPIDS + ABX PER ORDERS. PT SBA TO BSC AND WITH AMBULATION USING FWW. VSS. AT BEDSIDE FOR SUPPORT. USES CALL LIGHT APPROPRIATELY.
[2024-03-30 19:29] VITALS: BP 151/58
[2024-03-31 02:06] VITALS: BP 165/78
[2024-03-31 02:18] VITALS: BP 154/84
--- NOTE | 2024-03-31 04:09 | NUR ---
SHIFT SUMMARY POD 2 LAP DRAINAGE OF PELVIC ABSCESS. NO ACUTE CHANGES OVERNIGHT. VSS. TOLERATING ORALS, CLINIMIX/LIPIDS/ABX INFUSING PER EMAR. PT REPORTS PAIN TOLERABLE. VOIDING/AMBULATING c FFW & MIN ASSIST R/T LINE/CORD MANAGEMENT. LAP SITES x3 C/D/I. LUQ KAYLI DRAIN c SS DRAINAGE AT INCISION SITE, OTHERWISE D/I; SEROSANG FLUID IN DRAIN. CALL LIGHT IN REACH, BED IN LOWEST POSITION, WILL REPORT TO DAY RN.
[2024-03-31 05:14] LABS: Hemoglobin 10.2 g/dL (11.5-16.0); Mean Corpuscular HGB 29.1 pg (26.0-34.0); Mean Corpuscular HGB Conc 31.9 g/dL (31.5-36.5); Mean Corpuscular Volume 91 fL (80-100); Mean Platelet Volume 10.3 fL (9.1-12.4); Platelet Count 375 K/mm3 (150-400); RDW Coefficient Variation 14.7 % (11.7-14.2); White Blood Cell Count 7.86 K/mm3 (4.00-11.30)
[2024-03-31 06:06] LABS: Albumin, Blood 2.2 g/dL (3.4-5.0); Albumin/Globulin Ratio 0.6 (0.8-1.8); Bilirubin, Total 0.3 mg/dL (0.1-1.0); Bun/Creatinine Ratio 36.2 (12.0-20.0); Calcium, Blood 8.7 mg/dL (8.5-10.1); Creatinine, Blood 0.64 mg/dL (0.40-1.00); Globulin, Blood 3.6 g/dL (2.2-4.0); Magnesium, Blood 2.5 mg/dL (1.6-2.4); Phosphorus, Blood 3.1 mg/dL (2.5-4.9); Potassium, Blood 3.7 mmol/L (3.5-5.5); Total Protein, Blood 5.8 g/dL (6.4-8.2)
[2024-03-31 08:49] VITALS: BP 138/66
[2024-03-31 15:12] VITALS: BP 145/73
--- NOTE | 2024-03-31 17:44 | NUR ---
SHIFT SUMMARY NO ACUTE CHANGES. LAP SITES TO ABD REMAIN CDI. KAYLI DRAIN TO LUQ WITH MINIMAL SS DRAINAGE. KPAD TO ABD FOR COMFORT. TYLENOL FOR PAIN MANAGEMENT. SLOWLY ALAINA SOFT DIET. CLINIMIX + LIPIDS + ABX PER ORDERS. PT SBA TO BSC AND WITH AMBULATION USING FWW IN HALLWAY. VSS. AT BEDSIDE FOR SUPPORT. USES CALL LIGHT APPROPRIATELY.
[2024-03-31 19:45] VITALS: BP 157/70
[2024-04-01 02:29] VITALS: BP 180/82
[2024-04-01 04:12] VITALS: BP 181/76
--- NOTE | 2024-04-01 04:17 | NUR ---
SHIFT SUMMARY POD 3 LAP PELVIC ABCESS DRAINAGE PT ABLE TO SLEEP DURING THE NIGHT. DENIES ANY PAIN DURING THE SHIFT. PT IND TO THE BSC AND AMB IN THE BARRERA. X3 LAP SITES CLOSED WITH WG. KAYLI DRAIN IN LUQ DRAINING SS FLUID. PT PASSING SOME GAS NO BM TONIGHT. TOLERATING DIET. VOIDING WELL. NO OTHER CONCERNS AT THIS TIME, CALL LIGHT WITHIN REACH
[2024-04-01 05:15] LABS: Anion Gap 8 mmol/L (3-11); Blood Urea Nitrogen 19 mg/dL (8-24); Bun/Creatinine Ratio 32.3 (12.0-20.0); CO2, Blood 28 mmol/L (21-32); Calcium, Blood 8.8 mg/dL (8.5-10.1); Chloride, Blood 108 mmol/L (98-108); Creatinine, Blood 0.59 mg/dL (0.40-1.00); Glomerular Filtration Rate 89 (60-); Glucose, Blood 106 mg/dL (70-99); Magnesium, Blood 2.3 mg/dL (1.6-2.4); Phosphorus, Blood 3.3 mg/dL (2.5-4.9); Potassium, Blood 3.8 mmol/L (3.5-5.5); Sodium, Blood 140 mmol/L (136-145); Triglycerides 87 mg/dL (30-160)
[2024-04-01 07:34] VITALS: BP 154/86
[2024-04-01] MEDS ORDERED: Amoxicillin/Clavulanate K 875 MG Tab PO SCH (09:00)
[2024-04-01 15:01] VITALS: BP 147/80
--- NOTE | 2024-04-01 17:26 | NUR ---
SHIFT SUMMARY PATIENT WITH 1 VOMITING EPISODE OF 450ML THIS AM WHILE ON COMMODE HAVING BOWEL MOVEMENT. SHE DENIED ANY NAUSEA AT THAT TIME OR THEREAFTER. NO ADDITIONAL VOMITING EPISODES. PATIENT DRANK LITTLE ENSURE FOR LUNCH BUT BACK UP EATING DINNER AND TOLERATING AT THIS TIME. SHE IS AOX4 AND COOPERATIVE WITH CARE. WILL CONTINUE TO MONITOR.
[2024-04-01 20:30] VITALS: BP 157/84
--- NOTE | 2024-04-01 21:56 | NUR ---
ASSUMPTION OF CARE: PATIENT IS ALERT AND ORIENTED X 4. ABD SITES C/D/I, MINIMAL SS DRAINAGE IN KAYLI DRAIN, IV INFILTRATED IN THE RFA. DENIES CHEST PAIN PRESSURE OR SOB. PATIENT WITH SOME MINOR DIFFICULTIES SWALLOWING AUGMENTIN. SWALLOW TECHNIQUES OF CHIN TUCK AND TAKEN WITH PUDDING, EDUCATED BOTH PATIENT AND SIGNIFICANT OTHER ABOUT POTENTIAL NEED FOR SPEECH THERAPY CONSULT. PATIENT AGREEABLE. SLIGHTLY HYPERTENSIVE, HOWEVER, PATIENT HAD JUST AMBULATED FROM [facility], HAS BEEN 1 ASSIST FROM FAMILY TO [facility] WITH WALKER. PATIENT HAS BEEN COOPERATIVE AND PLEASANT. EDUCATED ON ORAL CARE. NO OTHER CONCERNS THAT ARE NOT LISTED ABOVE.
[2024-04-02 03:30] VITALS: BP 159/70
[2024-04-02 04:41] LABS: Bun/Creatinine Ratio 35.6 (12.0-20.0); Calcium, Blood 9.1 mg/dL (8.5-10.1); Creatinine, Blood 0.51 mg/dL (0.40-1.00); Magnesium, Blood 2.5 mg/dL (1.6-2.4); Phosphorus, Blood 3.6 mg/dL (2.5-4.9)
--- NOTE | 2024-04-02 06:18 | NUR ---
REPORT GIVEN TO JANUARY RNMARC EN ROUTE TO ROOM 327. CALL PLACED TO MARC EDUCATED. NO CONCERNS FROM THIS RN OR RECIEVING RN AT THIS TIME.
[2024-04-02 06:25] VITALS: BP 183/86
[2024-04-02 07:28] VITALS: BP 157/89
[2024-04-02 15:27] VITALS: BP 153/97
[2024-04-02 15:30] VITALS: BP 153/97
--- NOTE | 2024-04-02 17:57 | NUR ---
SUMMARY- PT AAOX4. SBA TO BSC. APPETITE IS MINIMAL. MINIMAL COMPLAINTS OF ABD TENDERNESS. PT WENT FOR A WALK AROUND THE UNIT THIS EVENING. SBA ONLY.
[2024-04-02 19:46] VITALS: BP 145/69
[2024-04-02] MEDS ORDERED: Cetirizine HCl10 MG PO (22:53)
[2024-04-02] MEDS ORDERED: ACETAMINOPHEN500 M2 PO (23:00)
[2024-04-02] MEDS ORDERED: ALBU90OI INH (23:05)
[2024-04-03 04:25] VITALS: BP 144/81
[2024-04-03 06:09] LABS: Bun/Creatinine Ratio 34.6 (12.0-20.0); Calcium, Blood 9.2 mg/dL (8.5-10.1); Creatinine, Blood 0.58 mg/dL (0.40-1.00); Magnesium, Blood 2.1 mg/dL (1.6-2.4)
--- NOTE | 2024-04-03 06:50 | NUR ---
Patient has slept well this shift, VSS. NO REPORTS OF PAIN. Ambulated in the see with her before bed. Clinimax infusing per MD order.
[2024-04-03 07:04] VITALS: BP 135/77
--- NOTE | 2024-04-03 15:26 | NUR ---
PER DR. RENTERIA, SHE NEEDS RECORDS SENT TO PCP IN [place] PRIOR TO DISCHARGE. WILL TALK TO HOSPITALIST RE: CHANGING ABx D/T PT C/O N/V.
[2024-04-03 15:28] VITALS: BP 135/72
--- NOTE | 2024-04-03 18:38 | NUR ---
SHIFT SUMMARY PATIENT A/OX4, BUT FORGETFUL. ABLE TO MAKE NEEDS KNOWN. AMBULATES INDEPENDENTLY IN ROOM AND WALKED THE HALLS TWICE THIS SHIFT WITH . LAPROSCOPIC SURGICAL SITES TO ABDOMEN WNL, NO DRAINAGE OR S/S OF INFECTION NOTED. KAYLI DRAIN DRAINING PROPERLY, NO CONCERNS AT THIS TIME. PATIENT WITH NAUSEA WITH EMESIS AND BELCHING AFTER LUNCH TODAY, ZOFRAN ADMINISTERED AND EFFECTIVE. IV CINIMIX INFUSING PER MAR. NO OTHER CONCERNS AT THIS TIME.
[2024-04-03 19:58] VITALS: BP 125/58
[2024-04-03] MEDS ORDERED: MetroNIDAZOLE 500 MG Tab PO SCH (21:00)
[2024-04-03] MEDS ORDERED: Ciprofloxacin 500 MG Tab PO SCH (21:00)
--- NOTE | 2024-04-03 21:17 | NUR ---
AGGITATION: PATIENT WAS CAMBATIVE WITH STAFF. TRING TO PUSH PASSED TRAUMA PROGRAM MANAGER, "I AM LEAVIN". HE VOIDED ON THE FLOOR AND REFUSED TO GET BACK IN BED. DAUGHTER WAS CALLED TO THE ROOM WITH NO EFFECT. PATIENT IS DISORIENTED TO ALL ORIENTATION QUESTIONS. DR LANDA IS CALLED AND ORDERS FOR ZYPREXA 5 mg IM X1 AND MORPHINE IV 2-4MG Q 6 HOURS PRN FOR PAIN. BP IS ELEVATED AT THIS TIME AND MD IS MADE AWARE. ZYPREXA AND MORPHINE 2MG IS GIVEN, WILL ATTEMPTED THE PO BP MEDS LATER. DAUGHTER IS IN THE ROOM. THE BED ALARM IS ON AND A SITTER HAS PATIENT UNDER CONTINUOS OBSERVATION.
[2024-04-04 05:26] LABS: Hematocrit 34.8 % (33.0-51.0); Hemoglobin 11.2 g/dL (11.5-16.0); Mean Corpuscular HGB 29.6 pg (26.0-34.0); Mean Corpuscular HGB Conc 32.2 g/dL (31.5-36.5); Mean Corpuscular Volume 92 fL (80-100); Mean Platelet Volume 10.2 fL (9.1-12.4); Platelet Count 455 K/mm3 (150-400); RDW Coefficient Variation 15.3 % (11.7-14.2); Red Blood Cell Count 3.78 M/mm3 (3.80-5.20)
[2024-04-04 05:47] LABS: Calcium, Blood 9.2 mg/dL (8.5-10.1); Creatinine, Blood 0.6 mg/dL (0.40-1.00); Potassium, Blood 4.2 mmol/L (3.5-5.5)
--- NOTE | 2024-04-04 06:35 | NUR ---
PATIENT HAS HAD NO NAUSEA AND WAS ABLE TO EAT HALF OF AN UZBEK ICE FOR SNACK. CLINIMIX IS INFUSING PER MAR. PATIENT IS UP TO THE BSC WITH A SBA AND AMBULATING IN THE BARRERA BEFOR GOING TO SLEEP.
--- NOTE | 2024-04-04 07:57 | NUR ---
PATEINT TAKEN TO CT SCAN VIA WHEELCHAIR. DETACHED FROM IV CINIMIX.
[2024-04-04 08:23] VITALS: BP 125/67
[2024-04-04 15:13] VITALS: BP 127/67
--- NOTE | 2024-04-04 18:41 | NUR ---
SHIFT SUMMARY PATIENT A/OX4 BUT FORGETFUL. ABLE TO MAKE NEEDS KNOWN. INDEPENDENT IN ROOM. CLINIMIX AND LIPIDS RUNNING PER DEC. PATIENT DENIES PAIN, BUT COMPLAINING OF NAUSEA TODAY, ZOFRAN ADMINISTERED X2. NO EMESIS. SURGICAL SITES TO ABDOMEN WNL, NO DRAINING OR S/S OF INFECTION NOTED. KAYLI DRAIN DRAINING PROPERLY, SEROSANGUINOUS FLUID NOTED. CT SCAN WAS COMPLETED TODAY. NO OTHER CONCERNS AT THIS TIME.
[2024-04-04 19:27] VITALS: BP 134/67
--- NOTE | 2024-04-05 04:22 | NUR ---
SHIFT SUMMARY PT.IS A&O X4, ABLE TO MAKE HER NEEDS KNOWN./OR BOYFRIEND AND PT.'S SISTER BY THE BEDSIDE. PT.C/O RLQ 3/10WORST, NOTED HARD/SMALL/BROWN STOOL, C/O CONSTIPATION. HYPERACTIVE BT'S IN ALL QUADRANTS. PRN MOM PO AND TYLENOL ADMINISTERED ORDERED (SEE EMAR.) THIS [employer]OLF [employer]UB WEIGHER ENCOURAGED PT.TO AMBULATE TOLERATED AROUND THE UNIT, PT.REPORTS FEELING BETTER AFTER. CLINIMIX INFUSING ORDERED. PT.AND MULTIPLE C/O NUTRITION AND MEALS OFFERED DURING THE HOSPITAL STAY.THIS [employer]OLF [employer] WEIGHER INFORMED THAT OK TO PREPARE APPROPRIATE MEALS PER DIET RECOMMENDATION, AND BRING IT FOR THE PT. BED AT THE LOWEST POSITION, CALL LIGHT IN REACH. WILL HANDOFF TO INCOMING SHIFT NURSE.
[2024-04-05 06:26] LABS: Bun/Creatinine Ratio 33.3 (12.0-20.0); Calcium, Blood 9.4 mg/dL (8.5-10.1); Creatinine, Blood 0.72 mg/dL (0.40-1.00); Magnesium, Blood 2.8 mg/dL (1.6-2.4); Phosphorus, Blood 3.5 mg/dL (2.5-4.9); Potassium, Blood 4.2 mmol/L (3.5-5.5)
[2024-04-05 07:27] VITALS: BP 138/71
--- NOTE | 2024-04-05 11:45 | NUR ---
MEDICAL STUDENT ANAYA SUCCESSFULLY REMOVED KAYLI DRAIN PER DR RENTERIA AT AROUND 1135. PT TOLERATED PROCEDURE WITH SOME DISCOMFORT. NO ADVERSE EFFECTS NOTED AT THIS TIME. PT MEDICATED FOR PAIN PER EMAR.
[2024-04-05] MEDS ORDERED: BANATROL PLUS1 EAC1 PO (12:09)
[2024-04-05] MEDS ORDERED: METR500 PO (12:10)
[2024-04-05] MEDS ORDERED: CIPR500 PO (12:10)
--- NOTE | 2024-04-05 13:46 | NUR ---
DISCHARGE NOTE PT DISCHARGED HOME AT 1340. PT AND PT'S PROVIDED W/ VERBAL AND WRITTEN INSTRUCTIONS AND REPORTED UNDERSTANDING. PT A&OX4, VSS, AMB W/ SBA, TOLERATING PO, VOIDING, AND PAIN MANAGED. BELONGINGS WERE RETURNED AND PT ESCOURTED OUT BY S/O.
== END 2024-04-05 13:43 | disposition home or self-care (01) | DRG 853 ==
LOC: ER 19:17 → SURS 19:18 → MEDS 03-20 13:20 → SURS 03-20 13:20 → MEDS 04-02 06:21 → ENPENDDIS 04-05 11:54 → MEDS 04-05 13:43
PROVIDERS: Emergency Medicine; Family Medicine; Internal Medicine; Surgery; ADMIT Student in an Organized Health Care Education/Training Program
PROC: 3E0336Z Introduction of Nutritional Substance into Peripheral Vein, Percutaneous Approach (ICD-10-PCS; 2024-03-19)
PROC: 0DH67UZ Insertion of Feeding Device into Stomach, Via Natural or Artificial Opening (ICD-10-PCS; 2024-03-19)
PROC: 3E03329 Introduction of Other Anti-infective into Peripheral Vein, Percutaneous Approach (ICD-10-PCS; 2024-03-19)
PROC: 8E0W4CZ Robotic Assisted Procedure of Trunk Region, Percutaneous Endoscopic Approach (ICD-10-PCS; 2024-03-29)
PROC: 0W9G40Z Drainage of Peritoneal Cavity with Drainage Device, Percutaneous Endoscopic Approach (ICD-10-PCS; principal; 2024-03-29 13:30)
DX: A41.9 Sepsis, unspecified organism (principal); K65.1 Peritoneal abscess; K57.20 Diverticulitis of large intestine with perforation and abscess without bleeding; E87.20 Acidosis, unspecified; B37.9 Candidiasis, unspecified; Z86.16 Personal history of COVID-19; I10 Essential (primary) hypertension; K59.00 Constipation, unspecified; K12.0 Recurrent oral aphthae; K57.10 Diverticulosis of small intestine without perforation or abscess without bleeding; Z90.49 Acquired absence of other specified parts of digestive tract; Z98.890 Other specified postprocedural states; Z88.5 Allergy status to narcotic agent; I25.2 Old myocardial infarction; Z91.018 Allergy to other foods; Z79.899 Other long term (current) drug therapy
CPT/HCPCS: 36415; 74176; 74177; 80048; 80053; 80069; 81003; 82947; 83605; 83735; 84100; 84478; 85025; 85027; 87040; 87070; 87075; 87076; 87077; 87185; 87186; 87205; 93005; 93010; 94760; 94762; 96365-59; 96366; 96367; 99284-25; A9270; G0378; J0330; J0696; J1100; J2371; J2405; J2543; J2704; J3010; J3411; J3480; J7050; J7120; Q9967